=== PATIENT | male | born 1980 | race Caucasian/White ===

== ENCOUNTER 2017-01-06 11:00 | Emergency (ER) | payer MEDICAID ==
[~2017-01-06] VITALS: Ht 165.1 cm; Wt 105.7 kg
[2017-01-06 13:43] VITALS: BP 139/80
== END 2017-01-06 13:43 | disposition home or self-care (01) ==
LOC: ED 11:00
DX: B34.9 Viral infection, unspecified (principal)
CPT/HCPCS: 87804; J1885; J7613; J7644; Q0092; Q0162